=== PATIENT | female | born 1965 | race Two or more races ===

== ENCOUNTER 2018-09-13 04:07 | Emergency (ER) | payer SELFPAY ==
--- NOTE | 2018-09-13 04:25 | ED PDOC ---
HPI: General Adult Time Seen by Provider: 09/13/18 04:13 Chief Complaint (Nursing): Alcohol Ingestion Chief Complaint (Provider): eval History Per: Patient History/Exam Limitations: no limitations Additional Complaint(s): 52 y/o female brought in by EMS for evaluation. Patient states she is homeless and was advised to come to ED for help with services. Patient requesting information for local shelters and for a primary doctor. Patient also requesting food and new shoes/socks. States her feet are "sore" from excessive walking. Patient requesting to rest for a bit, other denies acute medical or psychiatric complaints. Past Medical History Reviewed: Historical Data, Nursing Documentation, Vital Signs Vital Signs: Last Vital Signs Temp 97.9 F 09/13/18 04:11 Pulse 80 09/13/18 04:11 Resp 17 09/13/18 04:11 BP 131/92 H 09/13/18 04:11 Pulse Ox 100 09/13/18 04:11 - Medical History PMH: No Chronic Diseases - Surgical History Other surgeries: tubal ligation - Family History Family History: States: No Known Family Hx - Living Arrangements Living Arrangements: With Family - Allergies Allergies/Adverse Reactions: Allergies Allergy/AdvReac Type Severity Reaction Status Date / Time No Known Allergies Allergy Verified 09/13/18 04:18 Review of Systems ROS Statement: Except As Marked, All Systems Reviewed And Found Negative Musculoskeletal: Positive for: Foot Pain Physical Exam - Reviewed Nursing Documentation Reviewed: Yes Vital Signs Reviewed: Yes - Physical Exam Appears: Positive for: Well, Non-toxic, No Acute Distress Head Exam: Positive for: ATRAUMATIC, NORMAL INSPECTION, NORMOCEPHALIC Skin: Positive for: Normal Color Eye Exam: Positive for: Normal appearance ENT: Positive for: Normal ENT Inspection Cardiovascular/Chest: Positive for: Regular Rate, Rhythm Respiratory: Positive for: Normal Breath Sounds Pulses-Dorsalis Pedis (L): 2+ Pulses-Dorsalis Pedis (R): 2+ Pulses-Post. Tibialis (L): 2+ Pulses-Post. Tibialis (R): 2+ Back: Positive for: Normal Inspection Extremity: Positive for: Normal ROM, Other (fluid-filled blister right lateral heel. skin blistering/maceration to bilateral forefeet; no drainage, erythema, warmth. Distal NV/motor intact) Neurologic/Psych: Positive for: Alert, Oriented (x3) - ECG O2 Sat by Pulse Oximetry: 100 - Progress ED Course And Treament: Food/water given Patient given new socks Educated on proper foot hygiene Information for local shelters given Information for [facility] given Patient requires no further intervention in the ED and is stable for discharge at this time Disposition - Clinical Impression Clinical Impression: Blister of foot Counseled Patient/Family Regarding: Diagnosis, Need For Followup - Disposition Referrals: [facility] [Outside] [facility] [Outside] Disposition: Routine/Home Disposition Time: 04:29 Condition: STABLE Instructions: Blisters
[2018-09-13] MEDS: Sodium Chloride 0.9% 1,000 ML IV STA (06:13)
[2018-09-13 06:37] LABS: VENOUS BLOOD GAS BASE EXCESS 5.2 mmol/L (0.0-2.0); VENOUS BLOOD GAS PCO2 57 mmHg (40-60); VENOUS BLOOD GAS PO2 24 mm/Hg (30-55); VENOUS BLOOD PH 7.36 (7.32-7.43)
[2018-09-13 06:38] LABS: HEMOGLOBIN 12.2 g/dL (12.0-16.0); MEAN CELL VOLUME 75.8 fl (81.0-99.0); MEAN CORPUSCULAR HEMOGLOBIN 24.7 pg (27.0-31.0); MEAN CORPUSCULAR HGB CONC 32.6 g/dL (33.0-37.0); RBC 4.93 Mil/uL (3.80-5.20); RED CELL DISTRIBUTION WIDTH 13.1 % (11.5-14.5); WHITE BLOOD COUNT 7.3 K/uL (4.8-10.8)
[2018-09-13 06:48] VITALS: RESP 18
[2018-09-13 06:57] LABS: BLOOD UREA NITROGEN 12 mg/dl (7-17); CALCIUM 9.6 mg/dL (8.4-10.2); GFR NON-AFRICAN AMERICAN > 60
[2018-09-13] MEDS ORDERED: Insulin Regular 100 units/ml SC STA (07:19)
[2018-09-13 07:35] VITALS: BP 116/71; PULSE 100; TEMP 98; O2SAT 99
== END 2018-09-13 08:00 | disposition home or self-care (01) ==
LOC: H.ER 04:07
DX: S90.829A Blister (nonthermal), unspecified foot, initial encounter (principal); Y92.89 Other specified places as the place of occurrence of the external cause; Z59.0 Homelessness
CPT/HCPCS: 80048; 82803; 82948; 85027; 96360; 99283; J7030